=== PATIENT | male | born 1950 | race Caucasian/White ===

== ENCOUNTER 2024-10-11 13:16 | Day surgery (SDC) | payer MEDICARE ==
[2024-10-11] MEDS ORDERED: Depo-Medrol 40 MG/ML IM ONE (13:17)
[2024-10-11] MEDS ORDERED: Xylocaine-Mpf 2% 5 Ml Vial IJ ONE (13:17)
[2024-10-11] MEDS ORDERED: DIPRIVAN 200 MG/20 ML IV ONE (15:32)
[2024-10-11] MEDS ORDERED: Sodium Chloride 0.9% 250 ML 250 ML IV ONE (15:50)
[2024-10-11] MEDS ORDERED: Sodium Chloride 0.9% 250 ML 500 ML IV ONE (15:51)
--- NOTE | 2024-10-11 16:50 | XRAY ---
Indication: Bilateral L1-L3 MBB. Intraoperative fluoroscopy provided for 11 seconds. Single digital spot image submitted for interpretation demonstrates posterior needle tips projecting over expected left and right L1-L3 nerve roots. Correlate with intraoperative findings/report.
--- NOTE | 2024-10-11 16:54 | XRAY ---
11 seconds of fluoroscopy was used in surgery for a bilateral L1-L3 MBB.
== END 2024-10-11 16:15 | disposition home or self-care (01) ==
LOC: SDC-PAIN 13:16
PROVIDERS: ATTEND Psychiatry & Neurology Pain Medicine
DX: M47.816 Spondylosis without myelopathy or radiculopathy, lumbar region (principal)
CPT/HCPCS: 64493; 64494; 72020; 77002; J2704

== ENCOUNTER 2024-10-13 07:07 | Emergency (ER) | payer MEDICARE ==
[2024-10-13 07:33] VITALS: TEMP 97.4
[2024-10-13] MEDS ORDERED: Sodium Chloride 0.9% 1000 ML 1,000 ML ONE (07:50)
[2024-10-13] MEDS: Sodium Chloride 0.9% 1000 ML 1,000 ML IV STA (07:51)
--- NOTE | 2024-10-13 08:12 | ERPHSYRPT ---
- History of Present Illness Time Seen by Provider: 10/13/24 08:04 Source: patient, EMS Exam Limitations: no limitations Patient Subjective Stated Complaint: Vomiting Triage Nursing Assessment: Patient brought into ED per EMS and transferred to bed with assist of 3. Patient's skin pink, warm and dry. Patient complains of vomiting. Patient states he had a procedure by Dr. Amador on 10/11/2024 and felt fine. Patient states Tuesday around 7 pm he started having N/V and diarrhea. Patient states he was walking into the kitchen to get a drink when he became dizzy and didn't feel well then his neck started hurting. Patient complains of neck and back pain 5/10. Patient denies cough or SOB. Physician History: Patient complains of vomiting. Patient states he had a procedure by Dr. Amador on 10/11/2024 and felt fine. Patient states Tuesday around 7 pm he started having N/V and diarrhea. Patient states he was walking into the kitchen to get a drink when he became dizzy and didn't feel well then his neck started hurting. Patient complains of neck and back pain 5/10. Patient denies cough or SOB. Timing/Duration: yesterday Severity: mild Associated Symptoms: nausea, vomiting, headaches, other (diarrhea, neck pain) Allergies/Adverse Reactions: Penicillins Allergy (Verified 10/13/24 07:11) Hx Influenza Vaccination/Date Given: No Hx Pneumococcal Vaccination/Date Given: No Immunizations Up to Date: Yes Travel Risk - International Travel Have you traveled outside of the country in past 3 weeks: No - Emerging Infectious Disease Are you exhibiting symptoms associated with any current EIDs: Yes Symptoms: Diarrhea, Headaches/Body Aches/, Vomitting - Review of Systems Constitutional: Fever, No Chills Eyes: No Symptoms Ears, Nose, & Throat: No Symptoms Respiratory: No Cough, No Dyspnea Cardiac: No Chest Pain, No Edema, No Syncope Abdominal/Gastrointestinal: No Abdominal Pain, No Nausea, No Vomiting, No Diarrhea Genitourinary Symptoms: No Dysuria Musculoskeletal: Back Pain, Neck Pain Skin: No Rash Neurological: No Dizziness, No Focal Weakness, No Sensory Changes Psychological: No Symptoms Endocrine: No Symptoms All Other Systems: Reviewed and Negative - Past Medical History Pertinent Past Medical History: Yes Neurological History: No Pertinent History ENT History: Other Cardiac History: High Cholesterol Respiratory History: No Pertinent History Endocrine Medical History: Hypothyroidism Musculoskeletal History: No Pertinent History GI Medical History: No Pertinent History History: No Pertinent History Psycho-Social History: Depression Male Reproductive Disorders: No Pertinent History Other Medical History: tonsil cancer 12 years ago - Past Surgical History Past Surgical History: Yes Neuro Surgical History: No Pertinent History Cardiac: No Pertinent History Respiratory: No Pertinent History Gastrointestinal: No Pertinent History Genitourinary: No Pertinent History Musculoskeletal: Orthopedic Surgery Male Surgical History: No Pertinent History Other Surgical History: back sugery - Social History Smoking Status: Current every day smoker How long have you smoked: years Exposure to second hand smoke: No Drug Use: none - Social Determinants of Health Will the patient participate in the screening: Yes Do you worry about a steady place to live?: No Do you have any problems with any of the following?: No known problems In the past 12 months,have you had to go without utilities?: No Transportation Issues: No Has anyone in your support network made you feel unsafe?: No Have you or anyone in your house had to go without enough: No - Nursing Vital Signs Nursing Vital Signs: Initial Vital Signs Temperature 97.4 F 10/13/24 07:15 Pulse Rate 72 10/13/24 07:15 Respiratory Rate 20 10/13/24 07:15 Blood Pressure 120/76 10/13/24 07:15 O2 Sat by Pulse Oximetry 99 10/13/24 07:15 Pain Scale Pain Intensity 0 - Physical Exam General Appearance: no apparent distress, alert Eye Exam: PERRL/EOMI, eyes nml inspection Ears, Nose, Throat Exam: normal ENT inspection, TMs normal, pharynx normal, moist mucous membranes Neck Exam: normal inspection, non-tender, supple, full range of motion Respiratory Exam: normal breath sounds, lungs clear, No respiratory distress Cardiovascular Exam: regular rate/rhythm, normal heart sounds, normal peripheral pulses Gastrointestinal/Abdomen Exam: soft, normal bowel sounds, No tenderness, No mass Back Exam: normal inspection, normal range of motion, No CVA tenderness, No vertebral tenderness Extremity Exam: normal inspection, normal range of motion, pelvis stable Neurologic Exam: alert, oriented x 3, cooperative, normal mood/affect, nml cerebellar function, nml station & gait, sensation nml, No motor deficits Skin Exam: normal color, warm, dry, No rash Lymphatic Exam: No adenopathy SpO2: 99 - Course Nursing assessment & vital signs reviewed: Yes EKG Interpreted by Me: Sinus Rhythm - CT Exams Cervical Spine CT Interpretation: Tele-radiologist Report Lumbar Spine CT Interpretation: Tele-radiologist Report Ordered Tests: Active Orders 24 hr Category Date Time Status CERVICAL SPINE WO CONTRAST [CT] Stat Exams 10/13/24 07:38 Completed LUMBAR SPINE W/O [CT] Stat Exams 10/13/24 07:38 Completed AMYLASE Stat Lab 10/13/24 08:40 Completed BLOOD CULTURE Stat Lab 10/13/24 09:30 Received CBC W DIFF Stat Lab 10/13/24 08:40 Completed CMP Stat Lab 10/13/24 08:40 Completed LIPASE Stat Lab 10/13/24 08:40 Completed Lactic Acid Stat Lab 10/13/24 07:37 Completed Lactic Acid Stat Lab 10/13/24 10:36 Completed TROPONIN Stat Lab 10/13/24 08:40 Completed UA W/RFX UR CULTURE Stat Lab 10/13/24 07:38 Ordered Medication Summary Generic Name Dose Route Start Last Admin Trade Name Freq PRN Reason Stop Dose Admin Lactated Ringer's 1,000 mls @ 500 mls/hr 10/13/24 10:00 10/13/24 09:36 Lactated Ringers IV 11/12/24 09:59 500 mls/hr .Q2H MARLON Administration Discontinued Medications Generic Name Dose Route Start Last Admin Trade Name Freq PRN Reason Stop Dose Admin Sodium Chloride 1,000 mls @ 999 mls/hr 10/13/24 07:37 10/13/24 09:02 Sodium Chloride 0.9% 1000 Ml IV 10/13/24 08:37 Infused .Q1H1M STA Infusion Sodium Chloride Confirm 10/13/24 07:50 Sodium Chloride 0.9% 1000 Ml Administered 10/13/24 07:51 Dose 1,000 mls @ ud .ROUTE .STK-MED ONE Levofloxacin/Dextrose 750 mg in 150 mls @ 100 mls/hr 10/13/24 08:53 10/13/24 10:58 Levofloxacin 750mg/150ml D5w IV 10/13/24 10:22 Infused STAT STA Infusion Levofloxacin/Dextrose Confirm 10/13/24 09:27 Levofloxacin 750mg/150ml D5w Administered 10/13/24 09:28 Dose 750 mg in 150 mls @ ud IV .STK-MED ONE Ondansetron HCl 4 mg 10/13/24 10:07 Ondansetron Hcl 4 Mg/2 Ml Vial IV 10/13/24 10:08 STAT ONE Lab/Rad Data: Laboratory Result Diagrams 10/13/24 08:40 10/13/24 08:40 Laboratory Results 10/13/24 10/13/24 10/13/24 Range/Units 10:36 08:40 08:40 WBC 15.3 H (4.23-9.07) x10^3/uL RBC 5.17 (4.63-6.08) x10^6/uL Hgb 15.1 (13.7-17.5) g/dL Hct 46.7 (40.1-51.0) % MCV 90.3 (79.0-92.2) fL MCH 29.2 (25.7-32.2) pg MCHC 32.3 (32.3-36.5) g/dL RDW 14.1 (11.6-14.4) % Plt Count 248 (163-337) x10^3/uL MPV 11.0 (9.4-12.4) fL Gran % 82.6 H (34.0-67.9) % Immature Gran % (Auto) 0.6 H (0.001-0.429) % Nucleat RBC Rel Count 0.0 (0.00-0.2) % Eos # (Auto) 0.12 (0.04-0.54) x10^3/uL Immature Gran # (Auto) 0.09 H (0.001-0.031) x10^3u/L Absolute Lymphs (auto) 1.04 L (1.32-3.57) x10^3/uL Absolute Monos (auto) 1.38 H (0.30-0.82) x10^3/uL Absolute Nucleated RBC 0.00 (0.00-0.012) x10^3u/L Lymphocytes % 6.8 L (21.8-53.1) % Monocytes % 9.0 (5.3-12.2) % Eosinophils % 0.8 (0.8-7.0) % Basophils % 0.2 (0.2-1.2) % Absolute Granulocytes 12.65 H (1.78-5.38) x10^3/uL Basophils # 0.03 (0.01-0.08) x10^3/uL Sodium 146 H (135-145) mmol/L Potassium 4.7 (3.5-5.1) mmol/L Chloride 106 (98-107) mmol/L Carbon Dioxide 19 L (22-30) mmol/L Anion Gap 25.5 H (5-15) MEQ/L BUN 38 H (9-20) mg/dL Creatinine 2.11 H (0.66-1.25) mg/dL Estimated GFR 32.4 ML/MIN Glucose 112 H (74-106) mg/dL Lactic Acid 1.8 (0.4-2.0) Calcium 9.1 (8.4-10.2) mg/dL Total Bilirubin 0.90 (0.2-1.3) mg/dL AST 42 (17-59) U/L ALT 40 (0-50) U/L Alkaline Phosphatase 257 H (38-126) U/L Troponin I < 0.012 (0.000-0.033) ng/mL Serum Total Protein 9.8 H (6.3-8.2) g/dL Albumin 5.3 H (3.5-5.0) g/dL Amylase 182 H (30-110) U/L Lipase 133 (23-300) U/L // Range/Units 07:37 WBC (4.23-9.07) x10^3/uL RBC (4.63-6.08) x10^6/uL Hgb (13.7-17.5) g/dL Hct (40.1-51.0) % MCV (79.0-92.2) fL MCH (25.7-32.2) pg MCHC (32.3-36.5) g/dL RDW (11.6-14.4) % Plt Count (163-337) x10^3/uL MPV (9.4-12.4) fL Gran % (34.0-67.9) % Immature Gran % (Auto) (0.001-0.429) % Nucleat RBC Rel Count (0.00-0.2) % Eos # (Auto) (0.04-0.54) x10^3/uL Immature Gran # (Auto) (0.001-0.031) x10^3u/L Absolute Lymphs (auto) (1.32-3.57) x10^3/uL Absolute Monos (auto) (0.30-0.82) x10^3/uL Absolute Nucleated RBC (0.00-0.012) x10^3u/L Lymphocytes % (21.8-53.1) % Monocytes % (5.3-12.2) % Eosinophils % (0.8-7.0) % Basophils % (0.2-1.2) % Absolute Granulocytes (1.78-5.38) x10^3/uL Basophils # (0.01-0.08) x10^3/uL Sodium (135-145) mmol/L Potassium (3.5-5.1) mmol/L Chloride (98-107) mmol/L Carbon Dioxide (22-30) mmol/L Anion Gap (5-15) MEQ/L BUN (9-20) mg/dL Creatinine (0.66-1.25) mg/dL Estimated GFR ML/MIN Glucose (74-106) mg/dL Lactic Acid 4.3 H (0.4-2.0) Calcium (8.4-10.2) mg/dL Total Bilirubin (0.2-1.3) mg/dL AST (17-59) U/L ALT (0-50) U/L Alkaline Phosphatase (38-126) U/L Troponin I (0.000-0.033) ng/mL Serum Total Protein (6.3-8.2) g/dL Albumin (3.5-5.0) g/dL Amylase (30-110) U/L Lipase (23-300) U/L CLINICAL HISTORY: recent spinal procedure COMPARISON: None. TECHNIQUE: A CT scan of the cervical spine was performed without the administration of intravenous contrast. Contiguous axial images were obtained from the skull base to the upper thoracic spine. Coronal and sagittal reformatted images were also reviewed. One of the following dose-reduction techniques was utilized for this exam. Automated exposure control, adjustment of the mA and/or kV according to patient size, and use of iterative reconstruction. FINDINGS: Straightening of the cervical spine, possibly due to muscular spasm. Vertebrae: The vertebral bodies are normal in height and alignment. No evidence of acute fracture or dislocation. The cortical and trabecular bone patterns are normal. No signs of lytic or sclerotic lesions. Normal configuration of the posterior elements. Intervertebral Discs: Multilevel cervical disc bulges noted, MRI is advised. Atlantoaxial degenerative changes were noted. PatientID: [id number] Patient Name: RAMILA LUDWIG Exam Date: 10/13/2024 Procedure: CERVICAL SPINE WO CONTRAST page 1 of 2 Facet Joints: The facet joints are normal without evidence of dislocation, subluxation, or significant degenerative changes. Neural Foramina: The neural foramina is patent bilaterally at all levels. No evidence of foraminal narrowing or nerve root compression. Prevertebral Soft Tissues: The prevertebral soft tissues are normal in thickness without evidence of mass or abnormal fluid collection. Additional Findings: No other significant findings are noted in the visualized soft tissue structures or bony elements. IMPRESSION: 1. No evidence of acute fracture, or dislocation. 2. Straightening of the cervical spine, possibly due to muscular spasm. 3. Atlantoaxial degenerative changes noted. 4. Multilevel cervical disc bugles noted, MRI is advised. - Progress Progress: improved Counseled pt/family regarding: lab results, diagnosis, need for follow-up, rad results Medical Desision Making - Diagnostic Testing Diagnostic test were ordered, analyzed, and reviewed by me: Yes Radiological Interpretation: Interpreted by me, Teleradiologist Report - Risk of complications Low Risk: Low risk of morbidity from additional dx testing or treatment - Departure Departure Disposition: Home Clinical Impression: Acute renal injury due to hypovolemia, Dehydration symptoms Condition: Stable Critical Care Time: No Referrals: HANNAH CAMPBELL FNP [Primary Care Provider] - Follow up/PCP as directed (Follow up with Dr Amador on tuesday) Instructions: Acute kidney injury, Dehydration, Adult ED, Hypovolemia in adults Prescriptions: Smz/Tmp Ds Tablet [Bactrim Ds Tablet] 1 udtab PO BID #14 tablet Ondansetron ODT 4 MG [Zofran Odt 4 mg] 4 mg PO Q6H PRN PRN #10 tablet PRN Reason: Nausea/Vomiting Outpatient Orders: CBC W DIFF Facility: [facility], Location: LABORATORY COMPREHENSIVE/RENAL Time Frame: 2 Days, Facility: [facility], Location: LABORATORY
[2024-10-13 08:41] LABS: Absolute Neutrophil Ct (ANC) 12.65 x10^3/uL (1.78-5.38); BASOPHIL % 0.2 % (0.2-1.2); Basophil (Absolute #) 0.03 x10^3/uL (0.01-0.08); Eosinophil % 0.8 % (0.8-7.0); Eosinophil (Absolute #) 0.12 x10^3/uL (0.04-0.54); Hematocrit 46.7 % (40.1-51.0); Hemoglobin 15.1 g/dL (13.7-17.5); IMMATURE GRAN # 0.09 x10^3u/L (0.001-0.031); IMMATURE GRAN % 0.6 % (0.001-0.429); Lymphocyte (Absolute #) 1.04 x10^3/uL (1.32-3.57); Lymphocytes % 6.8 % (21.8-53.1); Mean Cell Volume 90.3 fL (79.0-92.2); Mean Corpuscular Hemoglobin 29.2 pg (25.7-32.2); Mean Corpuscular Hgb Concent. 32.3 g/dL (32.3-36.5); Monocyte (Absolute #) 1.38 x10^3/uL (0.30-0.82); Neutrophil % 82.6 % (34.0-67.9); Platelet Count 248 x10^3/uL (163-337); Red Blood Count 5.17 x10^6/uL (4.63-6.08); Red Cell Distribution Width 14.1 % (11.6-14.4); White Blood Count 15.3 x10^3/uL (4.23-9.07)
--- NOTE | 2024-10-13 08:49 | XRAY ---
CLINICAL HISTORY: recent spinal procedure COMPARISON: None. TECHNIQUE: A CT scan of the cervical spine was performed without the administration of intravenous contrast. Contiguous axial images were obtained from the skull base to the upper thoracic spine. Coronal and sagittal reformatted images were also reviewed. One of the following dose-reduction techniques was utilized for this exam. Automated exposure control, adjustment of the mA and/or kV according to patient size, and use of iterative reconstruction. FINDINGS: Straightening of the cervical spine, possibly due to muscular spasm. Vertebrae: The vertebral bodies are normal in height and alignment. No evidence of acute fracture or dislocation. The cortical and trabecular bone patterns are normal. No signs of lytic or sclerotic lesions. Normal configuration of the posterior elements. Intervertebral Discs: Multilevel cervical disc bulges noted, MRI is advised. Atlantoaxial degenerative changes were noted. Facet Joints: The facet joints are normal without evidence of dislocation, subluxation, or significant degenerative changes. Neural Foramina: The neural foramina is patent bilaterally at all levels. No evidence of foraminal narrowing or nerve root compression. Prevertebral Soft Tissues: The prevertebral soft tissues are normal in thickness without evidence of mass or abnormal fluid collection. Additional Findings: No other significant findings are noted in the visualized soft tissue structures or bony elements. IMPRESSION: 1. No evidence of acute fracture, or dislocation. 2. Straightening of the cervical spine, possibly due to muscular spasm. 3. Atlantoaxial degenerative changes noted. 4. Multilevel cervical disc bugles noted, MRI is advised. Electronically Signed by: Dario Walls MD. (10/13/2024 08:44:26 EST)
[2024-10-13 09:10] LABS: ALBUMIN 5.3 g/dL (3.5-5.0); ALKALINE PHOSPHATASE 257 U/L (38-126); AMYLASE 182 U/L (30-110); ANION GAP 25.5 MEQ/L (5-15); BLOOD UREA NITROGEN 38 mg/dL (9-20); CHLORIDE 106 mmol/L (98-107); Calcium 9.1 mg/dL (8.4-10.2); Carbon Dioxide 19 mmol/L (22-30); Creatinine 1 2.11 mg/dL (0.66-1.25); EST GLOMERULAR FILTRATION RATE 32.4 ML/MIN; Glucose 112 mg/dL (74-106); LIPASE 133 U/L (23-300); Potassium 4.7 mmol/L (3.5-5.1); SGOT/AST 42 U/L (17-59); SGPT/ALT 40 U/L (0-50); SODIUM 146 mmol/L (135-145); TROPONIN < 0.012 ng/mL (0.000-0.033); Total Protein 9.8 g/dL (6.3-8.2)
--- NOTE | 2024-10-13 09:25 | XRAY ---
CLINICAL HISTORY: recent spinal procedure COMPARISON: None. TECHNIQUE: CT non-contrast scan of lumbar spine done. Axial images were obtained with reformatted coronal and sagittal images and submitted for interpretation. One of the following dose reduction techniques were utilized for this exam: Automated exposure control, adjustment of the mA and/or kV according to patient size, use of iterative reconstruction. FINDINGS: Vertebrae: Mild reduced T12 vertebral body height is noted due to osteoporotic changes. Multilevel anterior osteophytes were noted Normal alignment of the lumbar vertebrae. No fractures, lytic or sclerotic lesions. Intervertebral Discs: L4-L5: There is 2.3 mm diffuse disc bulge compressing the anterior thecal sac and related nerve roots, causing no neural foraminaln stenosis, or spinal canal stenosis. L5-S1: There is 4.5 mm diffuse disc bulge with foraminal extensions compressing the anterior thecal sac and related nerve roots, causing moderate bilateral neural foraminaln stenosis, with no spinal canal stenosis. Spinal Canal and Neural Foramina: Multilevel neural foraminal narrowing due to facet joint arthrosis was noted Facet Joints: Multilevel facet joint arthrosis was noted. Soft Tissues: Normal appearance of the paraspinal soft tissues. A few non-obstructing right renal tiny calculi were noted Bilateral simple renal cysts were noted to measure up to 5cm. IMPRESSION: 1. No acute injury was noted. 2. Moderate spondylotic changes were noted. 3. A few non-obstructing right renal tiny calculi were noted 4. L4-L5: There is 2.3 mm diffuse disc bulge compressing the anterior thecal sac and related nerve roots, causing no neural foraminaln stenosis, or spinal canal stenosis. 5. L5-S1: There is 4.5 mm diffuse disc bulge with foraminal extensions compressing the anterior thecal sac and related nerve roots, causing moderate bilateral neural foraminaln stenosis, with no spinal canal stenosis. Electronically Signed by: Dario Walls MD. (10/13/2024 09:21:59 EST)
[2024-10-13] MEDS: LEVOFLOXACIN 750MG/150ML D5W 750 MG/150 ML BAG IV STA (09:27)
[2024-10-13] MEDS ORDERED: LEVOFLOXACIN 750MG/150ML D5W 750 MG/150 ML BAG IV ONE (09:27)
[2024-10-13] MEDS ORDERED: Lactated Ringers 1,000 ML IV ONE (09:35)
[2024-10-13] MEDS: Lactated Ringers 1,000 ML IV SCH (09:36)
[2024-10-13 09:58] VITALS: PULSE 68
[2024-10-13 11:20] VITALS: RESP 12; O2SAT 99
[2024-10-13] MEDS: Zofran 4 MG/2 ML VIAL IV ONE (11:37)
[2024-10-13 11:54] VITALS: BP 142/72
== END 2024-10-13 12:01 | disposition home or self-care (01) ==
LOC: ED 07:07
DX: R11.10 Vomiting, unspecified (principal); M54.9 Dorsalgia, unspecified; M54.2 Cervicalgia; R19.7 Diarrhea, unspecified; F17.200 Nicotine dependence, unspecified, uncomplicated; E86.0 Dehydration
CPT/HCPCS: 36415; 72125; 72131; 80053; 82150; 83605; 83690; 84484; 85025; 87040; 96360; 96365; 99284; J1956

== ENCOUNTER 2024-11-08 09:41 | Day surgery (SDC) | payer MEDICARE ==
[2024-11-08] MEDS ORDERED: methylPREDNISolone acetate IM ONE (09:42)
[2024-11-08] MEDS ORDERED: BUPIVACAINE 0.5% VIAL IJ ONE (09:42)
[2024-11-08] MEDS ORDERED: propofoL IV ONE (11:50)
--- NOTE | 2024-11-08 12:24 | XRAY ---
Indication: Bilateral L1-L3 MBB Intraoperative fluoroscopy provided for 10 seconds. Single digital spot image submitted for interpretation demonstrates posterior needle tips projecting expected left and right L1-L3 nerve roots. Correlate with intraoperative findings/report.
--- NOTE | 2024-11-08 13:45 | XRAY ---
10 seconds of fluoroscopy was used in surgery for a bilateral L1-L3 MBB.
== END 2024-11-08 12:25 | disposition home or self-care (01) ==
LOC: SDC-PAIN 09:41
PROVIDERS: ATTEND Psychiatry & Neurology Pain Medicine
DX: M47.816 Spondylosis without myelopathy or radiculopathy, lumbar region (principal)
CPT/HCPCS: 64493; 64494; 72020; 77002; J1010; J2704

== ENCOUNTER 2024-12-12 09:12 | Day surgery (SDC) | payer MEDICARE ==
[2024-12-12] MEDS ORDERED: LIDOCAINE HCL 1% AMPUL 5 ML IJ ONE (09:13)
[2024-12-12] MEDS ORDERED: Depo-Medrol 40 MG/ML IM ONE (09:13)
[2024-12-12] MEDS ORDERED: BUPIVACAINE 0.5% VIAL IJ ONE (09:13)
[2024-12-12] MEDS ORDERED: Lactated Ringers 1,000 ML IV ONE (09:13)
[2024-12-12] MEDS ORDERED: Lactated Ringers 500 ML IV ONE (10:10)
[2024-12-12] MEDS ORDERED: propofoL IV ONE (11:48)
--- NOTE | 2024-12-12 13:24 | XRAY ---
Indication: Right L1-L3 RFA. Intraoperative fluoroscopy provided for 22 seconds. 4 digital spot image submitted for interpretation demonstrates posterior needle tips projecting over expected right L1-L3 nerve roots. Correlate with intraoperative findings/report.
--- NOTE | 2024-12-12 14:58 | XRAY ---
22 seconds of fluoroscopy was used in surgery for a right L1-L3 RFA.
== END 2024-12-12 12:34 | disposition home or self-care (01) ==
LOC: SDC-PAIN 09:12
PROVIDERS: ATTEND Psychiatry & Neurology Pain Medicine
DX: M47.816 Spondylosis without myelopathy or radiculopathy, lumbar region (principal)
CPT/HCPCS: 64635; 64636; 72100; 77002; 99100; J2704

== ENCOUNTER 2024-12-19 09:30 | Day surgery (SDC) | payer MEDICARE ==
[2024-12-19] MEDS ORDERED: methylPREDNISolone acetate IM ONE (09:31)
[2024-12-19] MEDS ORDERED: BUPIVACAINE 0.5% VIAL IJ ONE (09:31)
[2024-12-19] MEDS ORDERED: LIDOCAINE HCL 1% AMPUL 5 ML IJ ONE (09:31)
[2024-12-19] MEDS ORDERED: Lactated Ringers 500 ML IV ONE (09:34)
[2024-12-19] MEDS ORDERED: propofoL IV ONE (10:53)
[2024-12-19] MEDS ORDERED: Sodium Chloride 0.9% 250 ML 250 ML IV ONE (11:29)
--- NOTE | 2024-12-19 13:05 | XRAY ---
Indication: Left L1-L3 RFA. Intraoperative fluoroscopy provided for 20 seconds. 4 digital spot image submitted for interpretation demonstrates posterior needle tips projecting over expected left L1-L3 nerve roots. Correlate with intraoperative findings/report.
--- NOTE | 2024-12-19 13:12 | XRAY ---
20 seconds of fluoroscopy was used in surgery for a left L1-L3 RFA.
== END 2024-12-19 11:35 | disposition home or self-care (01) ==
LOC: SDC-PAIN 09:30
PROVIDERS: ATTEND Psychiatry & Neurology Pain Medicine
DX: M47.816 Spondylosis without myelopathy or radiculopathy, lumbar region (principal)
CPT/HCPCS: 64635; 64636; 72100; 77002; 99100; J1010; J2704

== ENCOUNTER 2025-02-27 12:08 | Day surgery (SDC) | payer MEDICARE ==
[2025-02-27] MEDS ORDERED: Lactated Ringers IV ONE (12:09)
[2025-02-27] MEDS ORDERED: Depo-Medrol 40 MG/ML IM ONE (12:09)
[2025-02-27] MEDS ORDERED: LIDOCAINE HCL 2% 100 MG/5 ML IJ ONE (12:09)
[2025-02-27] MEDS ORDERED: propofoL IV ONE (14:35)
--- NOTE | 2025-02-27 16:39 | XRAY ---
Indication: Bilateral T4-T6 MBB. Intraoperative fluoroscopy provided for 12 seconds. 2 digital spot images submitted for interpretation demonstrates posterior needle tips projecting over expected left and right T4-T6 nerve roots. Correlate with intraoperative findings/report.
--- NOTE | 2025-02-27 17:20 | XRAY ---
12 seconds of fluoroscopy was used in surgery for a bilateral T4-T6 MBB.
== END 2025-02-27 15:16 | disposition home or self-care (01) ==
LOC: SDC-PAIN 12:08
PROVIDERS: ATTEND Psychiatry & Neurology Pain Medicine
DX: M47.816 Spondylosis without myelopathy or radiculopathy, lumbar region (principal)
CPT/HCPCS: 64490; 64491; 72020; J2704